=== PATIENT | male | born 1965 | race Caucasian/White ===

== ENCOUNTER 2021-07-10 12:54 | Day surgery (SDC) | payer OTHER ==
[~2021-07-10] VITALS: Ht 180.3 cm; Wt 99.1 kg
[~2021-07-10 12:54] MED LIST: ASPIR-LOW81 MG PO; HUMALOG100 UNIT/2 SUB-Q; LANTUS SOL100 UNIT/1 SUB-Q; LIPITOR80 MG PO; METFORMIN HCL1000 MG PO; RAMIPRIL5 MG PO; TRAZODONE HCL100 MG PO; VICTOZA 2-0.6 MG/0.1 SUB-Q
--- NOTE | 2021-07-10 14:50 | NUR ---
07/10/21 1450 Regi Lopez 1446 PATIENT ARRIVES TO PACU AWAKE BUT DROWSY. DENIES PAIN OR NAUSEA. RESP EVEN AND UNLABORED, NC TURNED OFF ON ARRIVAL TO PACU.
--- NOTE | 2021-07-11 12:26 | OR ---
[facility] [address] [place], [place] [address] Signed DATE OF OPERATION: 07/10/2021 SURGEON: Ned Mcmanus MD PREOPERATIVE DIAGNOSES: 1. History of polyps. 2. Diabetes mellitus. POSTOPERATIVE DIAGNOSES: Small polyp, proximal ascending colon. PROCEDURE: Total colonoscopy to cecum with cold morcellation polypectomy x1. ANESTHESIA: Intravenous sedation, fentanyl 100 mcg and Versed 8 mg. INDICATION: This 56-year-old white man, who is a patient of Dr. Doshi and has history of polyps in 2018 including hyperplastic polyps at least one tubular adenoma. He is symptom free. He did have diarrhea, which was resolved with change of his metformin dosage. He is now to undergo colonoscopy for surveillance. He understands the risks of bleeding, infection, and perforation. FINDINGS: His preoperative glucose level was 341. It turns out that he did not take his insulin as instructed; had been instructed to take half usual dose. Also used regular and Gatorade as his prep. He had no ill affects from the hyperglycemia, however. The prep was good and complete colonoscopy was undertaken visualizing the cecum with pull-up technique. A small polyp was noted in the proximal ascending colon, which was excised with cold morcellation technique. The remaining colon was normal. DESCRIPTION OF PROCEDURE: The patient was brought to the endoscopy suite and placed in lateral decubitus position, given intravenous sedation to the point of slurred speech and nystagmus. Digital rectal examination was normal. Prostate was normal. Olympus video colonoscope was passed in the rectum and manipulated throughout the colon ultimately intubating the proximal right colon with visualization of the cecum. Visualization behind the ileocecal valve could not be ascertained and on that basis a biopsy forceps was used to elevate the mucosa Electronically Signed By: NED MCMANUS MD 07/11/21 1226 PATIENT NAME: PAUL REED OPERATIVE REPORT DATE OF : 69 REPORT #: [id number] PHYSICIAN: NED MCMANUS MD PCP: ALLA RODRIGUEZ DO REPORT IS CONFIDENTIAL AND NOT TO BE RELEASED WITHOUT AUTHORIZATION [facility] [address] [place], [place] [address] Signed behind it, showing no sign of abnormality. Various manipulations were used to fully intubate the cecum, but it was not forthcoming though it was visualized. Upon withdrawal of scope in the proximal ascending colon, a small sessile polyp. It was noted that this was excised with cold morcellation technique with multiple bites. The scope was further withdrawn and examination throughout showed no sign of polyps, colitis, or diverticular formation that was obvious. Retroflexed view of the rectum was normal. Scope was removed. The patient was taken to the recovery room in good condition. CONCLUDING DIAGNOSIS: Small polyp x1, right colon. PLAN: Recommend repeat colonoscopy in 5 years, sooner if clinically indicated. He will return to the ongoing care of Dr. Doshi, otherwise. MD LEVI Baez/SWATHI /[id number] cc: Dr. Doshi Copies: ~ Electronically Signed By: NED MCMANUS MD 07/11/21 1226 PATIENT NAME: PAUL REED KAVIN OPERATIVE REPORT DATE OF : 69 REPORT #: [id number] PHYSICIAN: NED MCMANUS MD PCP: ALLA RODRIGUEZ DO REPORT IS CONFIDENTIAL AND NOT TO BE RELEASED WITHOUT AUTHORIZATION
--- NOTE | 2021-07-12 15:55 | PATH ---
[facility] [address] [facility] [place], [place] [address] Signed SPECIMEN(S): A ASCENDING/RIGHT COLON POLYP SPECIMEN(S): B ASCENDING/RIGHT COLON POLYP SPECIMEN SOURCE: A. ASCENDING/RIGHT COLON POLYP B. ASCENDING/RIGHT COLON POLYP CLINICAL HISTORY: History of colon polyps FINAL PATHOLOGIC DIAGNOSIS: A. Ascending / right colon polyp: - Tubular adenoma (two fragments). B. Ascending / right colon polyp: - Serrated polyp / adenoma. JVR:[place]:[id number] MICROSCOPIC EXAMINATION: Histologic sections of all submitted blocks are examined by light microscopy. These findings, together with the gross examination, support the pathologic diagnosis. GROSS DESCRIPTION: Two specimens are received in two containers, labeled "MS." A. The specimen, labeled "MS, 1," and designated on the requisition "colon, ascending/right, polypectomy," is received in formalin and consists of multiple martin soft tissue fragment from less than 0.1 up to 0.3 cm in greatest dimension. The specimen is submitted in toto in one cassette (A1). B. The specimen, labeled "MS, 2," and designated on the requisition "ascending/right colon polypectomy," is received in formalin and consists of two martin soft tissue fragment 0.3 to 0.4 cm in greatest dimension. The specimen is submitted in toto in one cassette (B1). AI (under the direct supervision of a pathologist) The Gross Description was prepared using a voice recognition system. The report was reviewed for accuracy; however, sound-alike word errors, addition and/or deletions may occur. If there is any question about this report, please contact Client Services. PERFORMING LABORATORY: The technical component was performed by [employer], Maribell Leoneirina Sumit, PATIENT NAME: PAUL REED PATHOLOGY DATE OF : 69 REPORT #: [id number] PHYSICIAN: [facility] PCP: ALLA RODRIGUEZ DO REPORT IS CONFIDENTIAL AND NOT TO BE RELEASED WITHOUT AUTHORIZATION [facility] [address] [facility] [place], [place] [address] [place] [address] (CLIA# [id number]). Professional interpretation was performed by [facility], [address] [place] [phone] (CLIA#: [id number]). Diagnostician: Bernardino Agudelo MD Pathologist Electronically Signed 07/12/2021 Copies: ~ PATIENT NAME: PAUL REED PATHOLOGY DATE OF : 69 REPORT #: [id number] PHYSICIAN: [facility] PCP: ALLA RODRIGUEZ DO REPORT IS CONFIDENTIAL AND NOT TO BE RELEASED WITHOUT AUTHORIZATION
== END 2021-07-10 15:15 | disposition home or self-care (01) ==
LOC: OPS 12:54 → DS 13:04 → OPS 14:00
PROVIDERS: ATTEND Surgery
PROC: 0DBK8ZX Excision of Ascending Colon, Via Natural or Artificial Opening Endoscopic, Diagnostic (ICD-10-PCS; principal; 2021-07-10 14:00)
DX: Z12.11 Encounter for screening for malignant neoplasm of colon (principal); D12.2 Benign neoplasm of ascending colon; E11.9 Type 2 diabetes mellitus without complications; Z79.4 Long term (current) use of insulin; Z88.1 Allergy status to other antibiotic agents; Z88.0 Allergy status to penicillin; Z87.19 Personal history of other diseases of the digestive system; I10 Essential (primary) hypertension; G47.30 Sleep apnea, unspecified
CPT/HCPCS: 99153; G0500; J2250; J3010; J7121

== ENCOUNTER 2022-12-09 06:25 | Day surgery (SDC) | payer OTHER ==
[~2022-12-09] VITALS: Ht 180.3 cm; Wt 94.1 kg
[~2022-12-09 06:25] MED LIST changes: +FARXIGA10 MG PO; +FLUTICASONE PRO16 GM NAS; +METOPROLOL SUCC25 MG PO; +OMEGA 3 FISH O1 EACH PO
--- NOTE | 2022-12-09 07:18 | NUR ---
PT IN [facility] SPIRITS. STATES IS FAMILIAR AND COMFORTABLE WITH PROCESS AND PROCEDURE. CONSENTED TO PRAYER. PRAYED FOR SUCCESSFUL PROCEDURE AND ABIDING PEACE.
[2022-12-09 07:28] VITALS: BP 133/83
--- NOTE | 2022-12-09 08:19 | NUR ---
12/09/22 0819 Pavithra Crump 0810-PATIENT ARRIVED TO PACU ON 3L NC RR EVEN. PATIENT AWAKE LAYING LEFT LATERAL DENIES PAIN OR NAUSEA. ABDOMEN SOFT. IVF INFUSING. ENCOURAGED TO PASS GAS. [id number]-[id number] DR. MCMANUS AT BEDSIDE PATIENT TO RESUME MEDICATIONS AT HOME. PATIENT ALSO REPORTED "WILL CALL DR. LIRA TODAY TO GET REFILL ON INSULIN" PATIENT PLACED ON RA RR EVEN 96%
[2022-12-09 08:37] VITALS: BP 109/74
--- NOTE | 2022-12-13 09:00 | OR ---
[facility] [address] [place], [place] [address] Signed DATE OF OPERATION: 12/09/2022 SURGEON: Ned Mcmanus MD PREOPERATIVE DIAGNOSIS: History of serrated adenoma (June 2021, right colon). POSTOPERATIVE DIAGNOSIS: Normal colon to cecum. PROCEDURE: Total colonoscopy to cecum. ANESTHESIA: Intravenous sedation, fentanyl 100 mcg and versed 6 mg. INDICATION: This 57-year-old white man is patient of Dr. Doshi and well known to me from the past. He has undergone Hill repair for reflux disease as well as cholecystectomy a number of years ago. He remains free of reflux disease. He did undergo colonoscopy on July 10, 2021 at which time he was found to have a right-sided colon polyp. This proved to be a serrated adenoma. On the basis of serrated adenoma and a for malignant degeneration, short-term repeat colonoscopy has been recommended. The risk of bleeding, infection, perforation, and so forth were reviewed with him. He understands and wished to proceed. FINDINGS: The prep was good. Complete colonoscopy was undertaken of the cecum without question. He had no evidence of polyps or other abnormality at this time. DESCRIPTION OF PROCEDURE: The patient was brought to the endoscopy suite and placed in lateral decubitus position, given intravenous sedation to the point of slurred speech and nystagmus. Digital rectal examination was normal. An Olympus video colonoscope was passed in the rectum and manipulated throughout the colon ultimately intubating the cecum. Ileocecal valve and appendiceal orifice were normal. The scope was then withdrawn. Examination undertaken showing no sign of abnormality, specifically no polyps or colitis. Retroflexed view was normal as well. The scope was withdrawn, removed and the patient taken to the recovery room in good Electronically Signed By: NED MCMANUS MD 12/13/22 0900 PATIENT NAME: PAUL REED OPERATIVE REPORT DATE OF : 69 REPORT #: [id number] PHYSICIAN: NED MCMANUS MD PCP: ALLA RODRIGUEZ DO REPORT IS CONFIDENTIAL AND NOT TO BE RELEASED WITHOUT AUTHORIZATION [facility] [address] [place], [place] [address] Signed condition. CONCLUSION DIAGNOSIS: No evidence of recurrent new or persistent polyp. PLAN: Recommend repeat colonoscopy in 3-5 years, sooner if clinically indicated. He will return to the ongoing care of Dr. Doshi. Ned Mcmanus MD JM/MODL /[id number] Copies: ~ Electronically Signed By: NED MMCANUS MD 12/13/22 0900 PATIENT NAME: PAUL REED OPERATIVE REPORT DATE OF : 69 REPORT #: [id number] PHYSICIAN: NED MCMANUS MD PCP: ALLA RODRIGUEZ DO REPORT IS CONFIDENTIAL AND NOT TO BE RELEASED WITHOUT AUTHORIZATION
== END 2022-12-09 08:45 | disposition home or self-care (01) ==
LOC: OPS 06:25 → DS 06:25 → OPS 07:30 → DS 07:30 → OPS 08:45 → DS 13:00
PROVIDERS: ATTEND Surgery
PROC: 0DJD8ZZ Inspection of Lower Intestinal Tract, Via Natural or Artificial Opening Endoscopic (ICD-10-PCS; principal; 2022-12-09 07:30)
DX: Z09 Encounter for follow-up examination after completed treatment for conditions other than malignant neoplasm (principal); Z86.010 Personal history of colon polyps; E11.9 Type 2 diabetes mellitus without complications; I10 Essential (primary) hypertension; E66.9 Obesity, unspecified; Z68.28 Body mass index [BMI] 28.0-28.9, adult
CPT/HCPCS: 99153; G0500; J2250; J3010; J7121